=== PATIENT | male | born 1940 | race Hispanic/Latino ===

== ENCOUNTER 2021-05-19 08:42 | Emergency (ER) | payer MEDICARE ==
[~2021-05-19] VITALS: Ht 167.6 cm; Wt 99.8 kg
[2021-05-19] MEDS ORDERED: EPINEPHRINE 1MG SYG 10ML IVP ONE (08:43)
== END 2021-05-19 10:52 ==
LOC: EDBD 08:42 → EDH 08:42
DX: I46.9 Cardiac arrest, cause unspecified (principal)
CPT/HCPCS: 92950; 94799; 99285; J0171; 94770